=== PATIENT | female | born 1970 | race Asian ===

== ENCOUNTER 2021-05-20 13:23 | Outpatient (CLI) | payer OTHER | END 2021-05-20 13:24 | disposition home or self-care (01) | LOC: BICMAMMO 13:23 → EDBD 13:23 → BICMAMMO 13:24 | PROVIDERS: ATTEND Family Medicine | DX: N63.10 Unspecified lump in the right breast, unspecified quadrant (principal) | CPT/HCPCS: 77066; G0279 ==

== ENCOUNTER 2023-04-08 10:06 | Outpatient (CLI) | payer BC | END 2023-04-08 10:07 | disposition home or self-care (01) | LOC: BICMAMMO 10:06 | PROVIDERS: ATTEND Family Medicine | DX: Z12.31 Encounter for screening mammogram for malignant neoplasm of breast (principal) | CPT/HCPCS: 77063; 77067 ==